=== PATIENT | female | born 1995 | race American Indian/Alaskan Native ===

== ENCOUNTER 2019-09-15 10:35 | Day surgery (SDC) | payer MEDICAID ==
--- NOTE | 2019-09-15 08:28 | History and Physical Report ---
History of Present Illness Date of examination: 09/15/19 Chief complaint: Missed History of present illness: The patient is a 24-year-old primigravida who presents for surgical management of missed at 7 weeks confirmed by 2 ultrasounds in the office. Past History Past Medical History: no pertinent history Past Surgical History: no surgical history Family/Genetic History: none Social history: no significant social history - Obstetrical History : 1 Medications and Allergies Allergies Allergy/AdvReac Type Severity Reaction Status Date / Time docosanol [From Abreva] Allergy Lips swell Verified 09/12/19 16:08 Home Medications Medication Instructions Recorded Confirmed Last Taken Type No Known Home Medications [No 09/12/19 09/12/19 Unknown History Reported Home Medications] Review of Systems All systems: negative - Physical Exam Breasts: Positive: deferred Abdomen: Positive: soft Extremities: Positive: normal Results All other labs normal. Assessment and Plan A: Missed at 7 wks P: Proceed with suction dilation and curettage and other indicated procedures
[~2019-09-15 10:35] MED LIST: DOXYCYCLINE HYCLATE 100 MG in SODIUM CHLORIDE 0.9% 250ML 250 ML IV NR; METHYLERGONOVINE MALEATE 0.2 MG/ML VIAL IM NR; SODIUM CHLORIDE 0.9% 1000 ML 1,000 ML IV SCH
[2019-09-15] MEDS ORDERED: MIDAZOLAM 2 MG/2 ML INJ ONE ×2 (11:21→12:40)
[2019-09-15] MEDS ORDERED: fentaNYL 100 MCG/2 ML INJ IV PRN (11:25)
[2019-09-15] MEDS ORDERED: ONDANSETRON 4 MG/2 ML INJ IV PRN (11:25)
--- NOTE | 2019-09-15 11:26 | Anesthesia Day of Surgery ---
Anesthesia Day of Surgery - Day of Surgery Patient Examined: Yes Patient H&P Reviewed: Yes Patient is NPO: Yes
--- NOTE | 2019-09-15 11:29 | Anesthesia Consultation ---
Anesthesia Consult and Med Hx Date of service: 09/15/19 - Airway Anesthetic Teeth Evaluation: Good (Has two tongue piercing studs) ROM Head & Neck: Adequate Mental/Hyoid Distance: Adequate Mallampati Class: Class III Intubation Access Assessment: Probably Good - Pre-Operative Health Status ASA Pre-Surgery Classification: ASA2 Proposed Anesthetic Plan: General - Pulmonary Hx Smoking: Yes (Former) - Central Nervous System Hx Psychiatric Problems: No - Other Systems Hx Cancer: No Hx Obesity: Yes
[2019-09-15 11:41] LABS: Basophils # (Auto) 0.1 K/mm3 (0.0-0.1); Basophils % (Auto) 0.7 % (0.0-1.8); Eosinophils # (Auto) 0.1 K/mm3 (0.0-0.4); Eosinophils % (Auto) 1.5 % (0.0-4.3); Hematocrit 36.4 % (30.3-42.9); Hemoglobin 12.2 gm/dl (10.1-14.3); Lymphocytes # (Auto) 2.4 K/mm3 (1.2-5.4); Lymphocytes % (Auto) 29.4 % (13.4-35.0); Mean Corpuscular HGB Conc 34 % (30-34); Mean Corpuscular Volume 92 fl (79-97); Monocytes # (Auto) 0.6 K/mm3 (0.0-0.8); Monocytes % (Auto) 7.3 % (0.0-7.3); Platelet Count 178 K/mm3 (140-440); Red Blood Count 3.95 M/mm3 (3.65-5.03); Red Cell Distribution Width 14.8 % (13.2-15.2)
[2019-09-15] MEDS ORDERED: fentaNYL 100 MCG/2 ML INJ ONE (11:57)
[2019-09-15] MEDS ORDERED: propofoL 200 MG/20 ML VIAL IV ONE (11:58)
[2019-09-15] MEDS ORDERED: LIDOCAINE MPF (2%) 20 MG/1 ML VIAL 5 ML ONE (11:58)
[2019-09-15] MEDS ORDERED: miSOPROStol 200 MCG TAB PR NR (12:00)
[2019-09-15] MEDS ORDERED: SILVER NITRATE APPLICATOR 1 EA TP ONE (13:14)
--- NOTE | 2019-09-15 13:46 | Operative Report ---
Operative Report Operative Report: Date of procedure: September 15, 2019 Preoperative diagnosis: Missed at 7 wks Postoperative diagnosis: Same Procedure: Suction Dilation and Curettage Surgeon: Mone Kilgore MD Anesthesia: General Findings: 1) Small mobile antervered uterus which sounded to 7 cm EBL: 350 mL IVF: 600 mL Urine output: 300 mL, clear, prior to procedure Specimens: Products of conception to pathology Drains: None Complications: None. Counts correct x 2 Disposition: Stable to PACU Indication for procedure: Pt is a 24 year old primigravida who presents for surgical management of missed at 7 wks. Procedure in detail: After the risks, benefits, alternatives and complications were explained to the patient she gave informed consent for the procedure. She was subsequently taken to the operating room with her IV noted to be running well. She was placed in the dorsal supine position and SCDs were noted to be in place and functioning. General anesthesia was then induced without difficulty. She was then placed in the dorsal lithotomy position and prepped and draped in a normal sterile fashion. A timeout was performed. The bladder was emptied yielding 200 mL of clear urine. A bi-valve speculum was placed into the vagina for visualization of the cervix. A single-tooth tenaculum was placed on the anterior lip of the cervix. The cervix was serially dilated to a #21 Garduno dilator. A number 7 rigid suction curette was used to evacuate the uterine cavity. A sharp curettage was done and noted to be gritty x 4 quadrants. A dose of Methergine 0.2 mg IM was given to ensure hemostasis. All instruments were then removed from the vagina atraumatically. Misoprostol 800 mg was placed per rectum. At this time, the procedure was ended. The patient was placed into the dorsal supine position and extubated without difficulty. She was then taken to the PACU in stable condition. All counts were correct x 2.
--- NOTE | 2019-09-15 13:51 | Short Stay Summary ---
Short Stay Documentation Date of service: 09/15/19 - History H&P: dictated Social history: no significant social history - Allergies and Medications Current Medications: Allergies docosanol [From Abreva] Allergy (Verified 09/12/19 16:08) Lips swell Home Medications Medication Instructions Recorded Confirmed Last Taken Type No Known Home Medications [No 09/12/19 09/12/19 Unknown History Reported Home Medications] Active Medications Fentanyl (Sublimaze) 50 mcg IV Q5MIN PRN PRN Reason: Pain , Severe (7-10) Stop: 09/15/19 20:00 Sodium Chloride (Nacl 0.9% 1000 Ml) 1,000 mls @ 100 mls/hr IV DIRECT SANJANA Last Admin: 09/15/19 11:45 Dose: 100 mls/hr Documented by: Misoprostol (Cytotec) 800 mcg [place] ONCE NR Stop: 09/15/19 16:00 Ondansetron HCl (Zofran) 4 mg IV ONCE PRN PRN Reason: Nausea And Vomiting Stop: 09/15/19 16:00 - Physical exam Breasts: deferred - Brief post op/procedure progress note Date of procedure: 09/15/19 Pre-op diagnosis: Missed Post-op diagnosis: same Procedure: Suction dilation and curettage Anesthesia: MAC Findings: 1) Small anteroverted uterus sounding to 7 cm Surgeon: ILDA KILGORE Estimated blood loss: other (350 mL) Pathology: list (products of conception) Specimen disposition: to lab Condition: stable - Hospital course Hospital course: Patient underwent suction dilation and curettage which she tolerated well. She was observed in the PACU until she met discharge criteria. She will follow-up in the office with Dr. Kilgore in 2 weeks. - Disposition Condition at discharge: Stable Disposition: DC-01 TO HOME OR SELFCARE - Discharge Diagnoses (1) Missed Status: Acute Short Stay Discharge Plan Activity: other (Nothing in vagina x 4 wks, no tub baths ) Weight Bearing Status: Full Weight Bearing Diet: regular Follow up with: DANA HINOJOSA MD [Primary Care Provider] - 7 Days ILDA KILGORE MD [Staff Physician] - 09/25/19 (Please call to schedule an appt ) Forms: Work/School Excuse Out Patient Prescriptions: Fluconazole [Diflucan TAB] 150 mg PO Q72H #2 tablet Doxycycline Hyclate 100 mg PO BID #14 tablet. Ibuprofen [Motrin] 800 mg PO Q8HR PRN #30 tablet PRN Reason: Pain, Moderate (4-6) HYDROcodone/APAP 5-325 [[place] 5/325] 1 each PO Q6HR PRN #20 tablet PRN Reason: Pain
[2019-09-15] MEDS ORDERED: MEPERIDINE 25 MG/1 ML INJ IV PRN (13:55)
[2019-09-15] MEDS ORDERED: ONDANSETRON 4 MG/2 ML INJ ONE (14:00)
[2019-09-15] MEDS ORDERED: dexAMETHasone 20 MG/5 ML VIAL ONE (14:00)
[2019-09-15 14:47] VITALS: BP 94/55
[2019-09-15] MEDS ORDERED: HYDROcodone/ACETAMINOPHEN 5-325 MG TAB PO ONE (15:00)
--- NOTE | 2019-09-15 19:19 | Post Anesthesia Evaluation ---
- Post Anesthesia Evaluation Patient Participated: Yes Airway Patent: Yes Stable Respiratory Function: Yes Nausea/Vomiting: No Temp > 96.8F: Yes Pain Manageable: Yes Adequeate Hydration: Yes Anesthesia Complications: No Block Receding Appropriately: Not Applicable Patient on Ventilator: No
== END 2019-09-15 15:15 | disposition home or self-care (01) ==
LOC: OR 10:35
PROVIDERS: ATTEND Obstetrics & Gynecology
DX: O02.1 Missed abortion (principal); G43.909 Migraine, unspecified, not intractable, without status migrainosus; E66.9 Obesity, unspecified; Z68.33 Body mass index [BMI] 33.0-33.9, adult; Z87.891 Personal history of nicotine dependence; Z79.899 Other long term (current) drug therapy
CPT/HCPCS: 36415; 59820; 85025; 86850; 86900; 86901; 88305; J1100; J2175; J2210; J2250; J2405; J2704; J3010; J7030; J7050

== ENCOUNTER 2020-01-17 05:59 | Day surgery (SDC) | payer MEDICAID ==
--- NOTE | 2020-01-16 17:39 | History and Physical Report ---
History of Present Illness Date of examination: 01/09/20 Chief complaint: Missed History of present illness: Pt is a 24 year old -[place] female LMP 11/13/19 at 9w2d by LMP with findings of missed at 6w4d on 01/03/20 who desires surgical management. She has had cramping and spotting over the last few days. Past History Past Medical History: no pertinent history Past Surgical History: D&C Family/Genetic History: diabetes Social history: no significant social history - Obstetrical History : 2 Para: 0 Hx # Term Pregnancies: 0 Number of Pregnancies: 0 Spontaneous Abortions: 1 Induced : 0 Number of Living Children: 0 Medications and Allergies Allergies Allergy/AdvReac Type Severity Reaction Status Date / Time docosanol [From Abreva] Allergy Lips swell Verified 01/16/20 12:06 Home Medications Medication Instructions Recorded Confirmed Last Taken Type Ibuprofen [Motrin] 800 mg PO Q8HR PRN #30 tablet 09/15/19 01/16/20 Unknown Rx Active Meds: Active Medications Lactated Ringer's (Lactated Ringers) 1,000 mls @ 75 mls/hr IV DIRECT SANJANA Doxycycline Hyclate 100 mg/ (Sodium Chloride) 250 mls @ 250 mls/hr IV ONCE ONE; Protocol Stop: 01/17/20 05:59 Methylergonovine Maleate (Methergine) 0.2 mg IM ONCE ONE Stop: 01/17/20 05:01 Misoprostol (Cytotec) 800 mcg [place] ONCE ONE Stop: 01/17/20 05:01 Review of Systems All systems: negative - Physical Exam Breasts: Positive: deferred Abdomen: Positive: soft (obese) Uterus: Positive: normal size Results All other labs normal. Ultrasound: report reviewed Assessment and Plan A: Missed at 6 wks Obesity P: Proceed with suction dilation and curettage and other indicated procedures.
[~2020-01-17 05:59] MED LIST changes: -DOXYCYCLINE HYCLATE 100 MG in SODIUM CHLORIDE 0.9% 250ML 250 ML IV NR; +DOXYCYCLINE HYCLATE 100 MG in SODIUM CHLORIDE 0.9% 250ML 250 ML IV ONE; +LACTATED RINGERS 1,000 ML IV SCH; -METHYLERGONOVINE MALEATE 0.2 MG/ML VIAL IM NR; +METHYLERGONOVINE MALEATE 0.2 MG/ML VIAL IM ONE; -SODIUM CHLORIDE 0.9% 1000 ML 1,000 ML IV SCH; +miSOPROStol 200 MCG TAB PR ONE
[2020-01-17] MEDS ORDERED: HYDROmorphone 1 MG/1 ML INJ IV PRN (07:27)
[2020-01-17] MEDS ORDERED: ONDANSETRON 4 MG/2 ML INJ IV PRN (07:27)
--- NOTE | 2020-01-17 07:27 | Anesthesia Day of Surgery ---
Anesthesia Day of Surgery - Day of Surgery Patient Examined: Yes Patient H&P Reviewed: Yes Patient is NPO: Yes
--- NOTE | 2020-01-17 07:27 | Anesthesia Consultation ---
Anesthesia Consult and Med Hx Date of service: 01/17/20 - Airway Anesthetic Teeth Evaluation: Good ROM Head & Neck: Adequate Mental/Hyoid Distance: Adequate Mallampati Class: Class III Intubation Access Assessment: Possibly Difficult - Pulmonary Exam CTA: Yes - Cardiac Exam Cardiac Exam: RRR - Pre-Operative Health Status ASA Pre-Surgery Classification: ASA2 Proposed Anesthetic Plan: General - Pulmonary Hx Smoking: Yes (quit 1999) Hx Asthma: Yes (no inhaler use in many years) Hx Respiratory Symptoms: No - Cardiovascular System Hx Hypertension: No - Central Nervous System CVA: No - Gastrointestinal Hx Gastroesophageal Reflux Disease: No - Endocrine Hx Renal Disease: No Hx Liver Disease: No Hx Insulin Dependent Diabetes: No Hx Non-Insulin Dependent Diabetes: No Hx Thyroid Disease: No - Other Systems Hx Substance Use: Yes (THC) Hx Obesity: Yes (BMI 34) - Additional Comments Anesthesia Medical History Comments: No hx anesthetic complications.
[2020-01-17] MEDS ORDERED: LIDOCAINE MPF (2%) 20 MG/1 ML VIAL 5 ML ONE ×2 (07:36→08:25)
[2020-01-17] MEDS ORDERED: propofoL 200 MG/20 ML VIAL IV ONE (07:36)
[2020-01-17] MEDS ORDERED: HYDROmorphone 1 MG/1 ML INJ ONE ×2 (07:36→08:07)
[2020-01-17] MEDS ORDERED: SILVER NITRATE APPLICATOR 1 EA TP ONE (07:49)
[2020-01-17] MEDS ORDERED: METHYLERGONOVINE MALEATE 0.2 MG/ML VIAL IM ONE ×2 (07:49→08:01)
[2020-01-17] MEDS ORDERED: miSOPROStol 200 MCG TAB ONE (07:49)
[2020-01-17] MEDS ORDERED: ePHEDrine SULFATE 50 MG/1 ML INJ ONE (07:52)
[2020-01-17] MEDS ORDERED: miSOPROStol 200 MCG TAB PR ONE (08:00)
[2020-01-17] MEDS ORDERED: SODIUM CHLORIDE 0.9% IRR 1,000 ML BOTTLE IR ONE (08:01)
[2020-01-17] MEDS ORDERED: GLYCOPYRROLATE 0.4 MG/2 ML INJ ONE (08:25)
[2020-01-17] MEDS ORDERED: ONDANSETRON 4 MG/2 ML INJ ONE (08:25)
[2020-01-17] MEDS ORDERED: dexAMETHasone 20 MG/5 ML VIAL ONE (08:25)
[2020-01-17] MEDS ORDERED: PHENYLEPHRINE/NS 1,000 MCG/10 ML SYRINGE (OR USE) IV ONE (08:25)
--- NOTE | 2020-01-17 08:29 | Operative Report ---
Operative Report Operative Report: Date of procedure: January 17, 2020 Preoperative diagnosis: Missed at 6 wks Postoperative diagnosis: Same Procedure: Suction Dilation and Curettage Surgeon: Mone Kilgore MD Anesthesia: General Findings: 1) Small mobile antervered uterus which sounded to 7 cm EBL: 200 mL Urine output: 100 mL, clear, prior to procedure Specimens: Products of conception to pathology Drains: None Complications: None. Counts correct x 2 Disposition: Stable to PACU Indication for procedure: Pt is a 24 year old who presents for surgical management of missed at 6 wks. Procedure in detail: After the risks, benefits, alternatives and complications were explained to the patient she gave informed consent for the procedure. She was subsequently taken to the operating room with her IV noted to be running well. She was placed in the dorsal supine position and SCDs were noted to be in place and functioning. General anesthesia was then induced without difficulty. She was then placed in the dorsal lithotomy position and prepped and draped in a normal sterile fashion. A timeout was performed. The bladder was emptied yielding 100 mL of clear urine. A bi-valve speculum was placed into the vagina for visualization of the cervix. A single-tooth tenaculum was placed on the anterior lip of the cervix. The cervix was serially dilated to a #24 Garduno dilator. A number 8 rigid suction curette was used to evacuate the uterine cavity. A sharp curettage was done and noted to be gritty x 4 quadrants. A dose of Methergine 0.2 mg IM was given to ensure hemostasis. All instruments were then removed from the vagina atraumatically. Misoprostol 800 mg was placed per rectum. At this time, the procedure was ended. The patient was placed into the dorsal supine position and extubated without difficulty. She was then taken to the PACU in stable condition. All counts were correct x 2.
--- NOTE | 2020-01-17 08:32 | Short Stay Summary ---
Short Stay Documentation Date of service: 01/17/20 - History H&P: dictated Social history: no significant social history - Allergies and Medications Current Medications: Allergies docosanol [From Abreva] Allergy (Verified 01/16/20 12:06) Lips swell Active Medications Hydromorphone HCl (Dilaudid) 0.5 mg IV Q10MIN PRN PRN Reason: Pain , Severe (7-10) Stop: 01/17/20 23:00 Lactated Ringer's (Lactated Ringers) 1,000 mls @ 75 mls/hr IV DIRECT SANJANA Last Admin: 01/17/20 07:20 Dose: 75 mls/hr Documented by: Ondansetron HCl (Zofran) 4 mg IV ONCE PRN PRN Reason: Nausea And Vomiting Stop: 01/17/20 23:00 - Physical exam Breasts: deferred - Brief post op/procedure progress note Date of procedure: 01/17/20 Pre-op diagnosis: Missed Post-op diagnosis: same Procedure: Suction dilation and curettage Anesthesia: GETA Findings: 1) Small mobile antervered uterus which sounded to 7 cm Surgeon: ILDA KILGORE Estimated blood loss: other (200 mL) Pathology: list (products of conception) Specimen disposition: to lab Condition: stable - Hospital course Hospital course: Pt underwent suction dilation and curettage which she tolerated well. She was observed in the PACU until she met discharge criteria. She will follow up in the office in two weeks with Dr Kilgore. - Disposition Condition at discharge: Stable Disposition: DC-01 TO HOME OR SELFCARE - Discharge Diagnoses (1) Obesity (BMI 30.0-34.9) Status: Acute (2) Missed Status: Acute Short Stay Discharge Plan Activity: other (Nothing in vagina x 4 wks ) Weight Bearing Status: Full Weight Bearing Diet: regular Follow up with: ILDA KILGORE MD [Primary Care Provider] - 01/31/20 (Please call to schedule a postop appt with Dr Kilgore ) Prescriptions: Ibuprofen [Motrin] 800 mg PO Q8HR PRN #30 tablet PRN Reason: Pain, Moderate (4-6) oxyCODONE /ACETAMINOPHEN [Percocet 5/325] 1 tab PO Q6HR PRN #35 tablet PRN Reason: Pain DOXYCYCLINE Hyclate [Vibramycin CAP] 100 mg PO Q12HR #14 capsule
[2020-01-17 09:17] VITALS: BP 136/83
--- NOTE | 2020-01-17 10:53 | Post Anesthesia Evaluation ---
- Post Anesthesia Evaluation Patient Participated: Yes Airway Patent: Yes Stable Respiratory Function: Yes Nausea/Vomiting: No Temp > 96.8F: Yes Pain Manageable: Yes Adequeate Hydration: Yes Anesthesia Complications: No
== END 2020-01-17 10:16 | disposition home or self-care (01) ==
LOC: OR 05:59
PROVIDERS: ATTEND Obstetrics & Gynecology
DX: O02.1 Missed abortion (principal); Z3A.08 8 weeks gestation of pregnancy; Z88.8 Allergy status to other drugs, medicaments and biological substances; G43.909 Migraine, unspecified, not intractable, without status migrainosus; J45.909 Unspecified asthma, uncomplicated; E66.9 Obesity, unspecified; Z68.34 Body mass index [BMI] 34.0-34.9, adult; Z98.890 Other specified postprocedural states; Z80.8 Family history of malignant neoplasm of other organs or systems; Z79.899 Other long term (current) drug therapy; F17.210 Nicotine dependence, cigarettes, uncomplicated
CPT/HCPCS: 59820; 86850; 86900; 86901; 88305; J1100; J1170; J2210; J2370; J2405; J2704; J7050; J7120